=== PATIENT | female | born 1940 | race African-American/Black ===

== ENCOUNTER 2017-01-13 22:38 | Emergency (ER) | payer MEDICARE ==
[~2017-01-13 22:38] MED LIST: BETHANECHOL CHL25 MG PO; COREG25 MG PO; DULERA 200 MCG8.8 GM INH; LASIX40 MG PO; NEURONTIN300 MG PO; NITROQUIK SL0.4 MG SL; NOVOLOG VI100 UNIT/1 SQ; PROTONIX 40MG T40 MG PO; ULTRAM50 MG PO; XOPENEX HFA15 GM INH
[2017-01-14 00:01] LABS: BASOPHIL 0.4 % (0-2); EOSINOPHIL 3.2 % (0-7); HCT 34.3 % (37.0-47.0); HGB 10.8 g/dl (12.5-16.0); LYMPHOCYTE 24.5 % (15-48); MCH 27.2 pg (25.0-31.0); MCHC 31.5 g/dL (32.0-36.0); MCV 86.4 fL (78.0-100.0); MONOCYTE 8.7 % (0-12); MPV 11.9 fL (6.0-9.5); NEUTROPHIL 63.2 % (41-80); PLT 205 K/uL (150-400); RBC 3.97 M/uL (4.20-5.40); RDW 16.5 % (11.5-14.0)
[2017-01-14 00:14] LABS: INR 1.15 (0.9-1.2); PROTHROMBIN TIME 14.3 SECONDS (11.7-14.0)
[2017-01-14 00:22] LABS: MYOGLOBIN 289 ng/mL (26-65); TROPONIN T < 0.010 ng/mL
[2017-01-14 00:23] LABS: ALBUMIN 4.6 g/dL (3.4-4.8); BILIRUBIN - TOTAL 0.2 mg/dL (0.1-1.0); GLOBULIN (CALCULATION) 2.2 g/dL (2.2-4.2); MAGNESIUM 2.11 mg/dL (1.40-2.10); POTASSIUM 5.1 mmol/L (3.5-5.1); TOTAL PROTEIN 6.8 g/dL (6.4-8.3)
[2017-01-14 00:25] LABS: CKMB 6.04 ng/mL (0.97-4.94)
[2017-01-14 00:55] LABS: CREATININE 1.9 mg/dL (0.5-1.0)
[2017-01-14 00:56] LABS: BILIRUBIN NEGATIVE (NEGATIVE); BLOOD NEGATIVE Ery/uL (NEGATIVE); CLARITY CLEAR (CLEAR); COLOR YELLOW (YELLOW); GLUCOSE (U) TRACE mg/dL (NORMAL); KETONE (U) NEGATIVE (NEGATIVE); LEUKOCYTES NEGATIVE Leu/uL (NEGATIVE); NITRITE NEGATIVE (NEGATIVE); PROTEIN NEGATIVE (NEGATIVE); SPECIFIC GRAVITY 1.015 (1.001-1.030); UROBILINOGEN 0.2 mg/dL (0.2-1.0); pH 5.5 (5.0-9.0)
[2017-05-29] MEDS ORDERED: ASPIRIN CHEWABL81 MG PO (12:37)
[2017-05-29] MEDS ORDERED: FLEXERIL10 MG PO (12:39)
[2017-05-29] MEDS ORDERED: NOVOLOG VI100 UNIT/1 SQ (12:41)
[2017-05-29] MEDS ORDERED: LEVEMIR VI100 UNITS/ SQ (12:42)
[2017-05-29] MEDS ORDERED: LIPITOR20 MG PO (13:02)
[2017-05-29] MEDS ORDERED: ZESTRIL40 MG PO (13:02)
[2017-05-29] MEDS ORDERED: CRESTOR10 MG PO (13:03)
[2017-05-29] MEDS ORDERED: BUMEX1 MG PO (13:03)
[2017-05-29] MEDS ORDERED: COUMADIN2.5 MG PO (13:04)
[2017-05-29] MEDS ORDERED: COUMADIN5 MG PO (13:05)
[2017-05-29] MEDS ORDERED: NORCO 5-325 TA1 EACH PO (13:06)
== END 2017-01-14 01:33 | disposition home or self-care (01) ==
LOC: FER 22:38
PROVIDERS: Emergency Medicine Emergency Medical Services
DX: R20.2 Paresthesia of skin (principal); M62.838 Other muscle spasm; G89.29 Other chronic pain; I11.0 Hypertensive heart disease with heart failure; I50.9 Heart failure, unspecified; E11.9 Type 2 diabetes mellitus without complications; K21.9 Gastro-esophageal reflux disease without esophagitis; Z88.0 Allergy status to penicillin; Z88.2 Allergy status to sulfonamides; Z88.5 Allergy status to narcotic agent; Z91.013 Allergy to seafood; Z79.82 Long term (current) use of aspirin; Z79.84 Long term (current) use of oral hypoglycemic drugs; Z79.4 Long term (current) use of insulin; Z79.899 Other long term (current) drug therapy; Z86.73 Personal history of transient ischemic attack (TIA), and cerebral infarction without residual deficits; Z87.39 Personal history of other diseases of the musculoskeletal system and connective tissue; Z95.0 Presence of cardiac pacemaker
CPT/HCPCS: 36415; 70450; 71010; 80053; 80061; 81003; 82550; 82553; 83735; 83874; 84484; 85025; 85610; 85730; 93005; J2270; J2405